=== PATIENT | female | born 1985 | race Caucasian/White ===

== ENCOUNTER 2017-11-16 12:01 | Observation (INO) | payer MEDICAID, SELFPAY ==
--- NOTE | 2017-11-16 11:29 | EKG12_ITS ---
Test Reason : CHEST PAIN Blood Pressure : / mmHG Vent. Rate : 118 BPM Atrial Rate : 119 BPM P-R Int : 144 ms QRS Dur : 062 ms QT Int : 338 ms P-R-T Axes : 070 086 059 degrees QTc Int : 473 ms Sinus tachycardia Septal infarct , age undetermined Abnormal ECG No previous ECGs available Confirmed by RAIMUNDO COTTON, EDUARDO ([id number]), society editor PUNEET WU ([id number]) on 12/02/2017 10:53:58 AM Referred By: FRANK Confirmed By:EDUARDO EUBANKS MD
--- NOTE | 2017-11-16 11:30 | EKG12_ITS ---
Test Reason : ENDOCARDITIS Blood Pressure : / mmHG Vent. Rate : 131 BPM Atrial Rate : 131 BPM P-R Int : 148 ms QRS Dur : 062 ms QT Int : 308 ms P-R-T Axes : 051 082 037 degrees QTc Int : 454 ms Sinus tachycardia Septal infarct , age undetermined Abnormal ECG No previous ECGs available Confirmed by RAIMUNDO COTTNO, EDUARDO ([id number]), primer expeditor and drier PUNEET WU ([id number]) on 12/02/2017 10:54:41 AM Referred By: FRANK Confirmed By:EDUARDO EUBANKS MD
--- NOTE | 2017-11-16 11:46 | EKG12_ITS ---
Test Reason : Blood Pressure : / mmHG Vent. Rate : 105 BPM Atrial Rate : 105 BPM P-R Int : 150 ms QRS Dur : 066 ms QT Int : 372 ms P-R-T Axes : 057 078 047 degrees QTc Int : 491 ms Sinus tachycardia Septal infarct , age undetermined Abnormal ECG No previous ECGs available Confirmed by RAIMUNDO COTTON, EDUARDO ([id number]), fashion editor PUNEET WU ([id number]) on 12/02/2017 10:54:53 AM Referred By: LOREN Confirmed By:EDUARDO EUBANKS MD
--- NOTE | 2017-11-16 16:10 | DT_ITS ---
This patient was seen during an EMR downtime November 15, 2017 - November 22, 2017. This patient may have a combination of paper and electronic documentation or all paper documentation. All documentation is viewable within the e-chart portion of [employer] for each patient visit.
--- NOTE | 2017-11-17 06:30 | RAD_ITS ---
STUDY: X-RAY CHEST REASON FOR EXAM: Female, 32 years old. Shortness of breath for 3 days. Opioid withdrawal. TECHNIQUE: Frontal and lateral views of the chest. COMPARISON: None. FINDINGS: There is a diffuse interstitial pattern with a lower zone predominance. There are bilateral pleural effusions, left greater than right. There is cardiomegaly. Normal mediastinum and harika. Normal visualized pulmonary arteries. Normal visualized aortic arch and descending thoracic aorta. Normal visualized thoracic spine. Normal visualized ribs, clavicles, and shoulders. There is no demonstrated abnormality of the visualized soft tissue structures of the upper abdomen. RAD/Chest PA and Lateral IMPRESSION: Findings most compatible with interstitial edema/congestive failure. Bilateral lower lobe pneumonia cannot be entirely excluded and follow-up films, if the patient remains symptomatic, would be appropriate. Electronically Signed: Kirit Acosta MD at 10:21 EDT , Service support ,
--- NOTE | 2017-11-17 16:06 | ECHOD_ITS ---
Reason For Study: RECENT ENDOCARDITIS Procedure This was a 2D Doppler, Color Flow transthoracic echocardiogram. Exam performed portable in patient room. Left Ventricle Normal size and thickness. The estimated ejection fraction is 65 %. Normal diastology for age. No regional wall motion abnormalities noted. Right Ventricle Normal size and thickness. Normal systolic function. Atria The left atrium is severely enlarged. Normal right atrium. Normal atrial septum. Mitral Valve Moderate focal mitral valve thickening. Moderately severe (3+) posteriorly directed mitral valve insufficiency. Tricuspid Valve Normal tricuspid valve. Trivial tricuspid valve insufficiency. Right ventricular systolic pressure estimated to be 32 mmHg. Aortic Valve Normal aortic valve. Trisinus/trileaflet aortic valve. Pulmonic Valve Normal pulmonic valve. Great Vessels Normal aortic root. Normal arch. Normal inferior vena cava. Inferior vena cava collapse with sniff. Pericardium/Pleural No pericardial effusion. MMode/2D Measurements & Calculations LVIDd: 5.0 cm IVSd: 1.1 cm Ao root diam: 2.8 cm LVIDs: 3.4 cm LVPWd: 0.94 cm RVDd: 3.3 cm FS: 32.0 % LAV(MOD-bp): 80.1 ml LA A4 area: 28.8 cm2 RA A4 area: 15.0 cm2 LAV(MOD-sp2): 51.1 ml LAV(MOD-sp4): 90.4 ml Time Measurements MV dec time: 0.19 sec Doppler Measurements & Calculations MV E max brooklynn: 156.5 cm/sec MV V2 max: 189.6 cm/sec Ao V2 max: 147.4 cm/sec MV A max brooklynn: 166.5 cm/sec MV max P.4 mmHg Ao max P.7 mmHg MV E/A: 0.94 MV V2 mean: 112.8 cm/sec Ao V2 mean: 84.3 cm/sec MV mean P.4 mmHg Ao mean P.5 mmHg MV V2 VTI: 29.3 cm Ao V2 VTI: 26.8 cm LV V1 max: 102.6 cm/sec PA V2 max: 79.1 cm/sec TR max brooklynn: 261.9 cm/sec LV V1 max P.2 mmHg TR max P.4 mmHg LV V1 mean P.3 mmHg LV V1 mean: 72.1 cm/sec LV V1 VTI: 22.7 cm Interpretation Summary The estimated ejection fraction is 65 %. Normal diastology for age. The left atrium is severely enlarged. Moderately severe (3+) posteriorly directed mitral valve insufficiency. Moderate focal mitral valve thickening. Trivial tricuspid valve insufficiency. Right ventricular systolic pressure estimated to be 32 mmHg. No overt vegetations noted. There is no comparison study available. Ordering Physician: Silvia Dye Performed By: Naeem hCilds RCS
--- NOTE | 2017-11-18 08:35 | RAD_ITS ---
STUDY: X-RAY CHEST REASON FOR EXAM: Female, 32 years old. Shortness of breath. Opiate withdrawal. TECHNIQUE: Frontal and lateral views of the chest. COMPARISON: Earlier in the day FINDINGS: There is a stable diffuse interstitial pattern with a lower zone predominance. There are bilateral pleural effusions, left greater than right. There is cardiomegaly. Normal mediastinum and harika. Normal visualized pulmonary arteries. Normal visualized aortic arch and descending thoracic aorta. Normal visualized thoracic spine. Normal visualized ribs, clavicles, and shoulders. There is no demonstrated abnormality of the visualized soft tissue structures of the upper abdomen. RAD/Chest PA and Lateral IMPRESSION: Stable findings most compatible with interstitial edema/congestive failure. Bilateral lower lobe pneumonia cannot be entirely excluded and follow-up films, if the patient remains symptomatic, would be appropriate. Electronically Signed: Kirit Acosta MD at 11:25 EDT , Service support ,
[2017-11-18 20:46] LABS: Lactic Acid 0.5 mmol/L (0.4-2.0)
[2017-11-18 21:23] LABS: Pregnancy, Serum, hCG Quali. NEGATIVE Negative (0-9 Nonpreg)
[2017-11-19 10:09] LABS: Pregnancy, Serum, hCG Quali. NEGATIVE Negative (0-9 Nonpreg)
[2017-11-19 10:10] LABS: Albumin, Serum 3.2 g/dL (3.2-5.0); BUN 15 mg/dL (7-18); BUN/Creat Ratio 22.1 RATIO (10-20); Creatinine, Serum 0.68 mg/dL (0.55-1.02); EST Glomerular Filtration Rate 108 mL/min (>60); Est Glom Filt Rate - Afr Amer 131 mL/min (>60); Globulin 3.2 g/dL (2.2-4.2); Glucose 90 mg/dL (74-106); Protein, Total 6.4 g/dL (6.4-8.2)
[2017-11-19 10:11] LABS: AST(SGOT) 350 U/L (15-37); Alanine Aminotransfer ALT/SGPT 583 U/L (13-56); Alkaline Phosphatase 189 U/L (45-117); Anion Gap 9 (5-15); Calcium,Total 8.3 mg/dL (8.5-10.1); Chloride 110 mmol/L (98-107); Sodium Level 143 mmol/L (136-145)
[2017-11-19 12:24] LABS: White Blood Count 6.8 K/mm3 (4.4-11.0)
[2017-11-19 12:25] LABS: Absolute Lymphocyte Count 1.17 X10^3/ul (0.83-4.51); Absolute Neutrophil Count 4.7 X10^3/uL (2.0-7.7); Basophil# 0.02 X10^3/uL; Basophil% 0.3 % (0-1); Eosinophil# 0.31 X10^3/uL; Eosinophils% 4.6 % (0-5); Hematocrit 34.8 % (37-47); Hemoglobin 11.2 g/dl (12.0-15.0); Lymphocyte # 1.17 X10^3/ul (4.0); Lymphocyte % 17.2 % (19-41); Mean Corp Hgb Conc 32.2 g/gl (32-36); Mean Corpuscular Hgb 28.2 pg (27.0-32.0); Mean Corpuscular Volume 87.7 fL (81-99); Mean Platelet Vol. 8.8 fl (6.2-12.0); Monocyte# 0.61 X10^3/uL; Neutrophil # 4.69 X10^3/uL (2.7-7.7); Neutrophil % 68.8 % (47-70); POSITIVE COUNT NO; POSITIVE DIFFERENTIAL NO; POSITIVE MORPHOLOGY NO; Platelet Count 233 K/mm3 (150-450); RBC Distribution Width CV 16.8 % (11.6-14.6); RBC Distribution Width SD 53.5 fl (35.1-43.9); Red Blood Count 3.97 M/mm3 (4.2-5.4)
[2017-11-20 07:26] LABS: Amphetamine Urine VISTA NEGATIVE (<1000 ng/mL); Barbiturate Urine VISTA NEGATIVE (< 200 ng/mL); Benzodiazepine Urine VISTA NEGATIVE (< 200 ng/mL); Cocaine Urine VISTA NEGATIVE (< 300 ng/mL); Ecstacy Urine VISTA NEGATIVE (< 500 ng/mL); Methadone Urine VISTA NEGATIVE (< 300 ng/mL); PCP Urine VISTA NEGATIVE (< 25 ng/mL); THC Urine VISTA NEGATIVE (< 50 ng/mL)
[2017-11-20 07:33] LABS: Anion Gap 9 (5-15); BUN 9 mg/dL (7-18); BUN/Creat Ratio 19.6 RATIO (10-20); Calcium,Total 7.6 mg/dL (8.5-10.1); Chloride 116 mmol/L (98-107); Creatinine, Serum 0.46 mg/dL (0.55-1.02); EST Glomerular Filtration Rate 170 mL/min (>60); Est Glom Filt Rate - Afr Amer 206 mL/min (>60); Glucose 84 mg/dL (74-106); Potassium 4.1 mmol/L (3.5-5.1); Sodium Level 145 mmol/L (136-145)
[2017-11-20 10:14] LABS: BUN 9 mg/dL (7-18); BUN/Creat Ratio 13.4 RATIO (10-20); Creatinine, Serum 0.67 mg/dL (0.55-1.02); EST Glomerular Filtration Rate 110 mL/min (>60); Est Glom Filt Rate - Afr Amer 133 mL/min (>60); Glucose 143 mg/dL (74-106)
[2017-11-20 10:15] LABS: Anion Gap 8 (5-15); Calcium,Total 7.7 mg/dL (8.5-10.1); Chloride 112 mmol/L (98-107); Sodium Level 141 mmol/L (136-145); Thyroid Stim Hormone (TSH) 0.43 uIU/mL (0.358-3.74)
[2017-11-20 10:55] LABS: Hematocrit 34.1 % (37-47); Mean Corp Hgb Conc 32.3 g/gl (32-36); Mean Corpuscular Hgb 28.7 pg (27.0-32.0); Red Blood Count 3.83 M/mm3 (4.2-5.4); White Blood Count 7.4 K/mm3 (4.4-11.0)
[2017-11-20 10:56] LABS: Basophil% 0.1 % (0-1); Eosinophils% 2.9 % (0-5); Lymphocyte % 13.7 % (19-41); Mean Platelet Vol. 9.3 fl (6.2-12.0); Monocyte% 8.4 % (0-10); Neutrophil % 74.8 % (47-70); POSITIVE COUNT NO; POSITIVE DIFFERENTIAL NO; POSITIVE MORPHOLOGY NO; Platelet Count 236 K/mm3 (150-450); RBC Distribution Width CV 16.8 % (11.6-14.6); RBC Distribution Width SD 53.5 fl (35.1-43.9)
[2017-11-20 10:57] LABS: Absolute Lymphocyte Count 1.01 X10^3/ul (0.83-4.51); Absolute Neutrophil Count 5.5 X10^3/uL (2.0-7.7); Basophil# 0.01 X10^3/uL; Eosinophil# 0.21 X10^3/uL; Lymphocyte # 1.01 X10^3/ul (4.0); Monocyte# 0.62 X10^3/uL
[2017-11-20 13:43] LABS: Anion Gap 8 (5-15); BUN 10 mg/dL (7-18); BUN/Creat Ratio 17.5 RATIO (10-20); Calcium,Total 8.1 mg/dL (8.5-10.1); Chloride 111 mmol/L (98-107); Creatinine, Serum 0.57 mg/dL (0.55-1.02); EST Glomerular Filtration Rate 132 mL/min (>60); Est Glom Filt Rate - Afr Amer 160 mL/min (>60); Glucose 95 mg/dL (74-106); Sodium Level 143 mmol/L (136-145)
[2017-11-21 10:41] LABS: Absolute Lymphocyte Count 1.16 X10^3/ul (0.83-4.51); Basophil# 0.01 X10^3/uL; Basophil% 0.1 % (0-1); Eosinophil# 0.46 X10^3/uL; Eosinophils% 6.3 % (0-5); Hematocrit 34.7 % (37-47); Hemoglobin 11.3 g/dl (12.0-15.0); Lymphocyte # 1.16 X10^3/ul (4.0); Lymphocyte % 15.8 % (19-41); Mean Corp Hgb Conc 32.6 g/gl (32-36); Mean Corpuscular Hgb 28.8 pg (27.0-32.0); Mean Corpuscular Volume 88.3 fL (81-99); Mean Platelet Vol. 8.8 fl (6.2-12.0); Monocyte# 0.74 X10^3/uL; Monocyte% 10.1 % (0-10); Neutrophil # 4.96 X10^3/uL (2.7-7.7); Neutrophil % 67.6 % (47-70); POSITIVE COUNT NO; POSITIVE DIFFERENTIAL NO; POSITIVE MORPHOLOGY NO; Platelet Count 274 K/mm3 (150-450); RBC Distribution Width CV 16.6 % (11.6-14.6); RBC Distribution Width SD 53.4 fl (35.1-43.9); Red Blood Count 3.93 M/mm3 (4.2-5.4); White Blood Count 7.3 K/mm3 (4.4-11.0)
== END 2017-11-18 14:43 | disposition home or self-care (01) | DRG 127 ==
LOC: ED 11-17 16:39 → MS2 05-26 12:02
PROVIDERS: Family Medicine; Admitting Provider Internal Medicine; Emergency Provider Emergency Medicine; Visit Provider Internal Medicine
DX: I50.31 Acute diastolic (congestive) heart failure (principal); F13.20 Sedative, hypnotic or anxiolytic dependence, uncomplicated; I34.0 Nonrheumatic mitral (valve) insufficiency; Z76.5 Malingerer [conscious simulation]; F17.200 Nicotine dependence, unspecified, uncomplicated; R94.31 Abnormal electrocardiogram [ECG] [EKG]; F15.20 Other stimulant dependence, uncomplicated; F32.9 Major depressive disorder, single episode, unspecified; F41.9 Anxiety disorder, unspecified; Z79.899 Other long term (current) drug therapy; Z86.19 Personal history of other infectious and parasitic diseases
CPT/HCPCS: 36415; 71046; 80048; 80053; 80307; 83605; 84443; 84484; 84703; 85025; 87040; 87086; 93005; 93306; 96361; 96374; 96375; 99218; 99284; J7030; G0378; J0696; J1940; J2405